=== PATIENT | male | born 1955 | race Caucasian/White ===

== ENCOUNTER 2022-06-17 04:14 | Day surgery (SDC) | payer BC ==
[2022-06-16 10:04] VITALS: BMI 31.4
[2022-06-17] MEDS ORDERED: GENTAMICIN SO4 80 MG/2 ML VIAL ONE ×3 (07:11→08:01)
[2022-06-17] MEDS ORDERED: MIDAZOLAM HCL 2 MG/2 ML SINGLE DOSE VIAL ONE (07:27)
[2022-06-17] MEDS ORDERED: ceFAZolin SODIUM 1 GM VIAL IVPB ONE ×2 (07:28→07:50)
[2022-06-17] MEDS ORDERED: GENTAMICIN SO4 80 MG/2 ML VIAL IVPB ONE ×2 (07:29→07:50)
[2022-06-17] MEDS ORDERED: PROPOFOL 40 ML ONE (07:53)
[2022-06-17] MEDS ORDERED: ceFAZolin SODIUM 1 GM VIAL ONE ×2 (08:01)
[2022-06-17] MEDS ORDERED: oxyCODONE HCL 5 MG TABLET PO PRN ×2 (08:25→08:30)
[2022-06-17] MEDS ORDERED: ONDANSETRON 4 MG/2 ML VIAL IVPUSH PRN (08:30)
[2022-06-17] MEDS ORDERED: PROMETHAZINE HCL 25 MG/1 ML VIAL IVPUSH PRN (08:30)
[2022-06-17] MEDS ORDERED: ELECTROLYTE-148 SOLN 1,000 ML IV SCH (08:30)
[2022-06-17 10:52] VITALS: PULSE 59; TEMP 96.8
[2022-06-17 14:21] VITALS: BP 151/78
[2022-06-18 17:47] VITALS: RESP 20
[2022-06-23 12:08] LABS: CA OXALATE MONOHYDR. 10 % (.); SIZE 9x6 mm (.); URIC ACID 90 % (.)
== END 2022-06-17 14:00 | disposition home or self-care (01) ==
LOC: JASU-SURG 04:14
PROVIDERS: ATTEND Urology
PROC: 0VT08ZZ Resection of Prostate, Via Natural or Artificial Opening Endoscopic (ICD-10-PCS; 2022-06-17)
PROC: 0TCB8ZZ Extirpation of Matter from Bladder, Via Natural or Artificial Opening Endoscopic (ICD-10-PCS; principal; 2022-06-17 07:30)
DX: N40.0 Benign prostatic hyperplasia without lower urinary tract symptoms (principal); N21.0 Calculus in bladder
CPT/HCPCS: 36415; 82360; 88300-TC; 88305-TC; 94760